=== PATIENT | female | born 2000 | race American Indian/Alaskan Native ===

== ENCOUNTER 2024-12-08 22:49 | Emergency (ER) | payer OTHER ==
[2024-12-08] MEDS ORDERED: Lidocaine 2% with EPINEPHrine 1:100,000 20 ML MDV INFILT ONE (22:50)
[2024-12-08] MEDS ORDERED: Bacitracin Oint 1 GM U/D Packet TOP ONE (23:48)
== END 2024-12-09 00:49 | disposition home or self-care (01) ==
LOC: FB.ED 22:49
DX: S51.812A Laceration without foreign body of left forearm, initial encounter (principal); F43.25 Adjustment disorder with mixed disturbance of emotions and conduct; F17.200 Nicotine dependence, unspecified, uncomplicated; Z90.49 Acquired absence of other specified parts of digestive tract; X78.9XXA Intentional self-harm by unspecified sharp object, initial encounter
CPT/HCPCS: 12002; 99282